=== PATIENT | female | born 1955 | race Caucasian/White ===

== ENCOUNTER → 2017-02-15 | Outpatient (CLI) | payer MEDICARE | END | disposition home or self-care (01) | LOC: CDC 11:50 | DX: C50.912 Malignant neoplasm of unspecified site of left female breast (principal) | CPT/HCPCS: 93000 ==

== ENCOUNTER 2017-03-01 05:33 | Day surgery (SDC) | payer OTHER ==
[~2017-03-01] VITALS: Ht 175.3 cm; Wt 77.3 kg
[2017-03-01 07:58] VITALS: BP 128/70
[2017-03-01] MEDS ORDERED: PERCOCET 5/31 TABLET PO (13:35)
[2017-03-01 15:30] VITALS: BP 119/78
[2017-03-01 16:22] VITALS: BP 98/60
[2017-03-01 18:09] VITALS: BP 95/56
[2017-03-01 18:40] VITALS: BP 102/62
== END 2017-03-01 19:05 | disposition home or self-care (01) ==
LOC: SDC 05:33 → RAD 07:30 → SDC 19:05
DX: C50.912 Malignant neoplasm of unspecified site of left female breast (principal); F17.210 Nicotine dependence, cigarettes, uncomplicated
CPT/HCPCS: 78195; 88305; 88307; A9541; J0131; J0690; J1100; J1170; J1885; J2250; J2405; J3010; J7050

== ENCOUNTER → 2017-09-06 | Outpatient (CLI) | payer MEDICARE, OTHER ==
[~2017-09-06] MED LIST: PERCOCET 5/31 TABLET PO
== END | disposition home or self-care (01) ==
LOC: CDC 12:34
DX: Z01.810 Encounter for preprocedural cardiovascular examination (principal); H25.11 Age-related nuclear cataract, right eye
CPT/HCPCS: 93000